=== PATIENT | male | born 1955 | race Caucasian/White ===

== ENCOUNTER 2016-09-11 11:11 | Outpatient (CLI) | payer OTHER ==
[2015-08-17 19:37] VITALS: BP 135/74
== END 2016-09-11 11:13 ==
LOC: LAB 11:11
PROVIDERS: ATTEND Family Medicine
DX: R63.4 Abnormal weight loss (principal); E11.9 Type 2 diabetes mellitus without complications
CPT/HCPCS: 36415; 83036; 84443

== ENCOUNTER 2017-03-10 11:26 | Outpatient (CLI) | payer OTHER ==
[2015-08-17 19:37] VITALS: BP 135/74
[2017-03-10 12:04] LABS: eGFR (African) > 60; eGFR (Non-African) > 60
== END 2017-03-10 11:27 ==
LOC: LAB 11:26
PROVIDERS: ATTEND Family Medicine
DX: E78.4 Other hyperlipidemia (principal); I10 Essential (primary) hypertension; E11.9 Type 2 diabetes mellitus without complications
CPT/HCPCS: 36415; 80048; 80061; 83036

== ENCOUNTER 2017-04-28 12:48 | Emergency (ER) | payer OTHER ==
--- NOTE | 2017-04-28 12:53 | ED Physician Documentation ---
General Adult - HISTORIAN Historian: patient - HPI Stated Complaint: dizziness Chief Complaint: Dizziness Onset: days ago (2) Timing: still present Severity: mild Further Comments: yes (He states he did get up to have a bowel movement and he had blood in his stool. He reports this is not abnormal and recalls he had a colonoscopy recently. Denies any other complaints. He did have some nausea and "got sick"x 1 this am. He did not eat luch Denies any chest pain or shortness of air) Last known Well Code/Unknown Code: Unknown - ROS CONST: weakness. denies: fever, sweating EYES/ENT: none CVS/RESP: denies: chest pain, shortness of breath, cough GI/: vomiting, nausea. denies: abdominal pain, problems urinating, diarrhea MS/SKIN/LYMPH: none NEURO/PSYCH: dizziness. denies: headache, fainting, numbness, difficulty walking, difficulty with speech, anxiety - PAST HX Past History: other (HTN DM MR ) Other History: other (HTN) Surgeries/Procedures: other (did not know ) Immunizations: referred to PCP Allergies/Adverse Reactions: Allergies Allergy/AdvReac Type Severity Reaction Status Date / Time No Known Allergies Allergy Verified 04/28/17 13:05 Home Medications: Ambulatory Orders Medication Instructions Recorded Multivitamin [Daily Vitamin] 1 each PO DAILY u2 05/22/14 [place]-3 Fatty Acids [Fish Oil] 500 mg PO DAILY av 05/22/14 - SOCIAL HX Smoking History: non-smoker Alcohol Use: none Drug Use: none - FAMILY HX Family History: No - VITAL SIGNS Vital Signs: Vital Signs Temp Pulse Resp BP Pulse Ox 135/74 08/17/15 19:35 - REVIEWED ASSESSMENTS Nursing Assessment Reviewed: Yes Vitals Reviewed: Yes General Adult Physical Exam - PHYSICAL EXAM GENERAL APPEARANCE: no distress EENT: eye inspection normal NECK: normal inspection CVS: reg rate & rhythm, heart sounds normal, equal pulses, no murmur ABDOMEN: soft, normal bowel sounds SKIN: warm/dry, normal color EXTREMITIES: non-tender, normal range of motion, no evidence of injury, no edema NEURO: oriented X3, CN's nml as tested, motor nml Discharge Clincal Impression: Dizziness Referrals: Timothy Hardwick MD [Primary Care Provider] - 2 Days Additional Instructions: See Dr Hardwick 2 days Eat small frequent snacks Follow up for GI possibly colonoscopy Condition: Stable Disposition: 01 HOME, SELF-CARE Decision to Admit: NO Date of Decison to Admit: 04/28/17 Decision Time: 14:21
[2017-04-28] MEDS: 0.9 % SODIUM CHLORIDE 1,000 ML IV ONE (13:32)
[2017-04-28 13:53] LABS: MEAN CORPUSCULAR HEMOGLOBIN 27.8 pg (28.0-34.0); MEAN CORPUSCULAR VOLUME 81.8 fl (80.0-100.0)
[2017-04-28 13:57] LABS: eGFR (African) > 60; eGFR (Non-African) > 60
[2017-04-28 14:10] LABS: BASOPHILS % 3 % (0-2); EOSINOPHILS % 3 % (0-7); MONOCYTES % 1 % (0-11); SEGMENTED NEUTROPHILS % 74 % (39-79)
[2017-04-28 14:43] VITALS: BP 150/76
== END 2017-04-28 14:37 | disposition home or self-care (01) ==
LOC: ED 12:48
DX: R42 Dizziness and giddiness (principal)
CPT/HCPCS: 80053; 85025; J7030; 96360; 99283

== ENCOUNTER 2017-04-30 13:57 | Emergency (ER) | payer OTHER ==
--- NOTE | 2017-04-30 14:01 | ED Physician Documentation ---
General Adult - HISTORIAN Historian: patient - HPI Stated Complaint: dizziness Chief Complaint: Dizziness Onset: other (he states this happened twice today. He is not able to correlate with activity or time ) Timing: gone now Severity: mild Further Comments: yes (He states he was here two days ago but cannot get into see Dr Hardwick until Wednesday. He had an episode where he sat on the cough and felt dizzy and sweaty. Did eat lunch. Denies any other new issues. Did see blood in his stool again today. No active bleeding at this time. He states "I just dont think I should be alone") Last known Well Code/Unknown Code: Unknown - ROS CONST: denies: fever, recent illness GI/: other (states he sees blood when he has a bowel movement ). denies: abdominal pain MS/SKIN/LYMPH: denies: rash NEURO/PSYCH: dizziness. denies: headache - PAST HX Past History: other (DM, HTN ) Surgeries/Procedures: other Immunizations: referred to PCP Allergies/Adverse Reactions: Allergies Allergy/AdvReac Type Severity Reaction Status Date / Time No Known Allergies Allergy Verified 04/30/17 14:11 Home Medications: Ambulatory Orders Medication Instructions Recorded Multivitamin [Daily Vitamin] 1 each PO DAILY u2 05/22/14 [place]-3 Fatty Acids [Fish Oil] 500 mg PO DAILY av 05/22/14 - SOCIAL HX Smoking History: non-smoker Alcohol Use: none Drug Use: none - FAMILY HX Family History: No - VITAL SIGNS Vital Signs: Vital Signs Temp Pulse Resp BP Pulse Ox 150/76 04/28/17 14:37 - REVIEWED ASSESSMENTS Nursing Assessment Reviewed: Yes Vitals Reviewed: Yes General Adult Physical Exam - PHYSICAL EXAM GENERAL APPEARANCE: no distress EENT: eye inspection normal, ENT inspection normal, LUIS NECK: normal inspection RESPIRATORY: no resp distress, chest non-tender, breath sounds normal CVS: reg rate & rhythm, heart sounds normal, equal pulses, no murmur ABDOMEN: soft, no organomegaly, normal bowel sounds, no distension, non-tender BACK: normal inspection SKIN: warm/dry, normal color EXTREMITIES: non-tender NEURO: oriented X3, CN's nml as tested, motor nml, sensation nml Discharge Clincal Impression: Dizziness Referrals: Timothy Hardwick MD [Primary Care Provider] - 2 Days Additional Instructions: Discussed with patient Labs are normal Make sure and keep follow up appt Eat meals Take meds Change positions slowly Condition: Stable Disposition: HOME, SELF-CARE Decision to Admit: NO Date of Decison to Admit: 04/30/17 Decision Time: 14:57
[2017-04-30 14:46] LABS: MEAN CORPUSCULAR HEMOGLOBIN 28.6 pg (28.0-34.0); MEAN CORPUSCULAR VOLUME 84.7 fl (80.0-100.0)
[2017-04-30 14:54] LABS: eGFR (African) > 60; eGFR (Non-African) > 60
[2017-04-30 15:02] VITALS: BP 149/90
[2017-04-30 15:12] LABS: BASOPHILS % 1 % (0-2); EOSINOPHILS % 4 % (0-7); MONOCYTES % 6 % (0-11); SEGMENTED NEUTROPHILS % 73 % (39-79)
== END 2017-04-30 15:00 | disposition home or self-care (01) ==
LOC: ED 13:57
DX: R42 Dizziness and giddiness (principal)
CPT/HCPCS: 36415; 80053; 85025; 99283

== ENCOUNTER 2018-01-19 11:50 | Outpatient (CLI) | payer OTHER | END 2018-01-19 11:52 | LOC: LAB 11:50 | PROVIDERS: ATTEND Family Medicine | DX: E11.9 Type 2 diabetes mellitus without complications (principal) | CPT/HCPCS: 83036 ==

== ENCOUNTER 2018-04-27 11:58 | Outpatient (CLI) | payer OTHER | END 2018-04-27 12:00 | LOC: LAB 11:58 | PROVIDERS: ATTEND Family Medicine | DX: E11.9 Type 2 diabetes mellitus without complications (principal) | CPT/HCPCS: 36415; 83036 ==

== ENCOUNTER 2018-10-21 14:29 | Outpatient (CLI) | payer OTHER | END 2018-10-21 14:34 | disposition home or self-care (01) | LOC: RAD 14:29 | PROVIDERS: ATTEND Family Medicine | DX: S46.011A Strain of muscle(s) and tendon(s) of the rotator cuff of right shoulder, initial encounter (principal); X58.XXXA Exposure to other specified factors, initial encounter; Y99.8 Other external cause status | CPT/HCPCS: 73030 ==

== ENCOUNTER 2019-02-15 14:02 | Outpatient (CLI) | payer OTHER ==
--- NOTE | 2019-03-09 11:03 | CONSULTATION REPORT ---
DATE OF CONSULTATION: 02/15/2019 CHIEF COMPLAINT: Right shoulder pain. HISTORY OF PRESENT ILLNESS: This 63-year-old mildly intellectually impaired white male is seen for recommendations regarding painful right shoulder per request of Dr. Timothy Hardwick. The patient indicates that he is right hand dominant. He has had shoulder pain for about a month. He says that it was most notable to him when he was carrying heavy bags of wet leaves, trying to put them in and out of a pickup truck, felt a great deal of pain in the right shoulder with that maneuver and the pain has not gone away since. He does note a remote history of dislocation of the right shoulder several times in the past, most recently about three years ago when he was walking and fell. His current pain bothers him such that he has 10/10 pain with activity, reports the pain bothers him at night and awakens him on occasion at night, although not all the time. He does describe the pain as intermittent, most bothersome with use. He describes the pain as aching and dull, severe and worsening. He does indicate the shoulder pain is worse with elevation activity, lifting, repetitive activity, throwing, weightlifting and work. Shoulder pain is better with ice. He takes nonsteroidals for it. He has also tried Tylenol. He notes weakness in the right shoulder. He says that he has had some troubles with that right shoulder for a number of years, but the last month or so has been much worse, more pain, more weakness, more difficulty with functional activities. He has some stiffness and weakness in the right shoulder he describes, also crepitus, and describes some intermittent neck pain. He does not feel like the shoulder dislocates anymore, although it does not always feel as good at times as other times. It hurts most of the time he says. PAST MEDICAL HISTORY: He is reported to have type 2 diabetes, hypertension, viral encephalitis history as well as intellectual disability. The patient also has a history of chronic dermatitis. He denies having type 2 diabetes, although that was diagnosed in 2014 and charted. PAST SURGICAL HISTORY: Past surgical intervention includes right hand fracture repairs, abdominal surgery for unknown reason in the past. FAMILY HISTORY: Negative for pulmonary embolism, blood clots, bone disease, rheumatoid disorder. SOCIAL HISTORY: He does indicate that he quit smoking five years ago after 40 years of heavy smoking prior to that. I note, however, that the patient does have listed that he currently smokes when he saw Dr. Hardwick in December of this year. The patient denies alcohol use, abuse or history of same. He denies illicit drug use, abuse or history of same. ALLERGIES: The patient reports no known drug allergies. MEDICATIONS: Current medications are listed to include hydrochlorothiazide, lisinopril, amlodipine, Mucinex, Chantix, diclofenac, Flonase, aspirin, multivitamin, fish oil. WORK HISTORY: The patient's occupation is disabled. FAMILY HISTORY: His father did have chronic kidney disease, currently. REVIEW OF SYSTEMS: The patient's review of systems is positive for nosebleeds, corrective lenses. He indicates he can walk two blocks without shortness of breath and he sleeps on one pillow at night. He does not list positive genitourinary, psychiatric, neurologic, gastrointestinal, or respiratory findings on review of systems. PHYSICAL EXAMINATION: Vital signs reveal temperature 98.2, respirations 18, pulse 53, blood pressure 135/71. Oxygen saturation is 96% on room air. The patient is 6 feet in height and weighs 247 pounds. Calculated BMI is 33.5. He rates his pain as 10/10 when he tries to raise his right arm, 0/10 at rest. The patient is alert and oriented to person, place and time. He does respond appropriately, but slowly and in simple terminology. HEENT is normocephalic. Neck is supple. Lungs are clear to percussion bilaterally. Cardiovascular: Regular rate and rhythm with pulses present and symmetric, radial aspect of wrists bilaterally. Abdomen is soft, nontender, mildly obese. Extremity: There is tenderness on the anterior aspect of the right shoulder. He describes pain into the lateral shoulder area and front of the shoulder as well as some in the scapular region. He does have inability to actively abduct beyond about 10 to 20 degrees. Passively, he can bring the right arm up to about 120 degrees and maintain it there. He does have weakness and drop arm type phenomenon when he tries to lower the right shoulder without using his left hand for assistance. He is unable to adduct across midline with the right shoulder. He is unable to forward flex the right shoulder beyond about 10 to 20 degrees actively. Passively, he can come up to about 70 to 80 degrees. He can internally rotate on the right such as to reach the lumbar region. On the left, he can internally rotate such as to reach the lower thoracic region. The patient does have mild crepitus on range of motion of the right shoulder. He does have inability to abduct against resistance at 90 degrees, cannot maintain abduction. There is mild crepitus on range of motion of the right shoulder. The patient can flex and extend the right elbow. The patient does have grossly intact light touch sensation distally to both the upper extremities. Skin changes are noted throughout the body, consistent with patient's reported chronic dermatitis. IMAGING STUDIES: The patient's MRI obtained earlier this year is reviewed, findings as noted. Essentially, the patient has rotator cuff arthropathy and degenerative changes were noted at the joint. I did review plain film x-rays which revealed some abnormality involving the humeral head, narrowing of the humeroacromial distance, with some alteration of the alignment of the glenohumeral surfaces consistent with multiple previous dislocations of the right shoulder reported by history. IMPRESSION: 1. Right rotator cuff arthropathy. 2. Heavy nicotine use history, uncertain as to whether the patient having quit five years ago is accurate versus desire on his part, given charting of current cigarette usage about a month ago and charting of Chantix usage suggested. 3. Hypertension. 4. Mild intellectual impairment with a history of viral encephalitis. 5. Reported type 2 diabetes mellitus on charting, but which the patient denies. 6. Chronic dermatitis. RECOMMENDATIONS: Options are discussed with the patient. I believe that he would likely benefit, from the pain standpoint, from a right reverse shoulder arthroplasty procedure. I did advise the patient as to what the procedure entails, alternatives available, both surgical and nonsurgical, as well as the potential complications including , which can result from surgery. I did advise this gentleman that a shoulder replacement is a light duty shoulder and that it is not advised to do any heavy or demanding work activities with the right shoulder after shoulder replacement. He indicates that he does not plan on doing any more heavy work, and I specifically advised that he probably would not do well with mowing grass with a push mower. He says he has a self- propelled mower and does not have to use a push mower. He also says he does not plan to lift heavy leaves or anything like that again. I did advise him as to the timeframe to get over a reverse shoulder arthroplasty. I reminded him that improvement in function, strength, range of motion are not expected following the surgery, although sometimes improvement in one or more of those parameters does occur. I did advise him that improvement in level of discomfort is the goal of the surgery and that is generally, but not always, obtained. He is advised that infection, loosening of components, periprosthetic fractures, dislocation of components, need for additional surgical intervention on one or more occasions, flail shoulder, myocardial infarction, stroke, heart attack, chronically draining shoulder wound or wounds, worse pain, failure to relieve pain, worse function can occur in some instances following shoulder surgery, and he acknowledges this. I advised him that absolutely no guarantees whatsoever can be provided regarding results of surgery and he acknowledges this. As stated, I again went over with him that my expectations are that he will do well in regards to postoperative timeframe and pain relief. I did advise him his active participation in the therapy process is appropriate and we discussed the timeframe, several months, to expect to start to get over the surgery. He would like to get the surgery done this winter. I will need to get medical clearance for him, and I have recommended anesthesia evaluation preoperatively in addition to urine test several weeks preoperatively for nicotine metabolites. This patient will need a hemoglobin A1c, given the question as to whether there may or may not be diabetes type 2. If so, that will need to be optimized prior to surgery. The patient voices satisfaction with today's visit, and anticipate performing the reverse shoulder arthroplasty on that right side when arrangements can be made. Order is placed today for the procedure. Adelfo Juarez MD /[employer] [id number] Job #[id number] cjd MTDD
== END 2019-02-15 16:05 ==
LOC: ORHTO 14:02
PROVIDERS: ATTEND Orthopaedic Surgery
DX: M12.011 Chronic postrheumatic arthropathy [Jaccoud], right shoulder (principal); I10 Essential (primary) hypertension; F79 Unspecified intellectual disabilities; E11.9 Type 2 diabetes mellitus without complications; L30.9 Dermatitis, unspecified; Z87.891 Personal history of nicotine dependence
CPT/HCPCS: 99203; G0463

== ENCOUNTER 2019-04-18 12:50 | Outpatient (CLI) | payer OTHER ==
[2019-04-18 13:48] LABS: BASOPHILS % 0.4 % (0.0-1.5); NEUTROPHILS # 4.5 # k/uL (1.4-7.7)
[2019-04-18 14:07] LABS: eGFR (Non-African) > 60
--- NOTE | 2019-04-18 17:47 | Diagnostic Imaging Report ---
PATIENT MR#: [id number] PATIENT PATIENT NAME: DAVID CANDELARIO DATE OF : 1955 REFERRING PHYSICIAN: Liz Nielson EXAM DATE: 04/18/2019 ACCESSION NUMBER: [id number] EXAM DESCRIPTION: CHEST 2VIEW HISTORY: PRE-OP. COMPARISON: None provided. CHEST RADIOGRAPH, FRONTAL AND LATERAL: Upper mediastinum: Not widened. Heart: No cardiomegaly. Lungs: No lobar infiltrate, pulmonary edema, pneumothorax or significant effusion. Skeleton: Straightening of the normal lower thoracic kyphosis and moderate dextrocurvature centered a t T7. IMPRESSION: No acute thoracic process. Read by: Dr. Mg Beltran Transcribed by: Mg Beltran Transcribed Date: 04/18/2019 5:46:33 PM Electronically signed by: Dr. Mg Beltran Date signed: 04/18/2019 5:46:42 PM
== END 2019-04-18 13:50 ==
LOC: OUT 12:50
PROVIDERS: ATTEND Nurse Practitioner Adult Health
DX: M19.011 Primary osteoarthritis, right shoulder (principal)
CPT/HCPCS: 36415; 71046; 80053; 80323; 85025; 93005; 99202; G0463; G0480